=== PATIENT | male | born 1960 | race Caucasian/White ===

== ENCOUNTER 2018-10-02 00:59 | Emergency (ER) | payer MEDICARE, MEDICAID ==
[2018-10-02 01:11] VITALS: BMI 38.7
[2018-10-02 01:27] VITALS: TEMP 98.3; O2SAT 100
--- NOTE | 2018-10-02 01:31 | ED PDOC ---
Arrival/HPI - General Chief Complaint: Bite Time Seen by Provider: 10/02/18 01:02 Historian: Patient - History of Present Illness Narrative History of Present Illness (Text): 10/02/18 01:31 57 year old male, with no significant past medical history, presents to the emergency department s/p unknown dog attacked him. Patient states prior to arrival, patient parked his car and got out when an unknown dog came up to him. He state she was trying to pet the dog when the dog began trying to attack him. He tried to kick the dog, but the dog bit him through his pajama pants. Initially patient had no pain, but once he took off his pants, he noticed bruising and abrasions to the left ankle. Patient does not known dogs vaccination status. He denies any back pain, neck pain, or any other complaints/injuries. PMD: Dr. Cheung Time/Duration: Prior to Arrival Symptom Onset: Sudden Activities at Onset: Light Context: Street Past Medical History - Provider Review Nursing Documentation Reviewed: Yes - Tetanus Immunization Tetanus Immunization: Unknown - Cardiac Hx Hypertension: Yes Hx Peripheral Edema: Yes (both feet +2) - Pulmonary Hx Respiratory Disorders: No - Neurological Hx Neurological Disorder: No - HEENT Hx HEENT Disorder: No - Renal Hx Dialysis: Yes Date of Last Dialysis Treatment: 05/17/15 Hx Renal Failure: Yes (dialysis m/w/f at ) - Endocrine/Metabolic Hx Diabetes Mellitus Type 2: Yes - Hematological/Oncological Hx Blood Transfusions: Yes Hx Blood Transfusion Reaction: No - Integumentary Hx Dermatological Disorder: No - Musculoskeletal/Rheumatological Hx Musculoskeletal Disorders: No Hx Falls: No - Gastrointestinal Other/Comment: ulcer - Genitourinary/Gynecological Hx Genitourinary Disorders: No - Psychiatric Hx Psychophysiologic Disorder: No Hx Substance Use: No - Surgical History Other/Comment: left chest wall dialysis cath removed 05/15/15 - Anesthesia Hx Anesthesia Reactions: No Hx Malignant Hyperthermia: No - Suicidal Assessment Feels Threatened In Home Enviroment: No Family/Social History - Physician Review Nursing Documentation Reviewed: Yes Family/Social History: No Known Family HX Smoking Status: Never Smoked Hx Alcohol Use: No Hx Substance Use: No Hx Substance Use Treatment: No Allergies/Home Meds Allergies/Adverse Reactions: Allergies No Known Allergies Allergy (Verified 10/02/18 01:11) Home Medications: Home Meds Medication Instructions Recorded Confirmed RX: Calcium Acetate 1,334 mg PO TID 11/01/13 10/02/18 RX: Cinacalcet [Sensipar] 90 mg PO DAILY 11/01/13 10/02/18 RX: Sevelamer Carbonate [Renvela] 2,400 mg PO TID 11/01/13 10/02/18 RX: Famotidine 40 mg PO DAILY 05/17/15 10/02/18 RX: amLODIPine [Norvasc] 10 mg PO DAILY 05/17/15 10/02/18 Review of Systems - Physician Review All systems were reviewed & negative as marked: Yes - Review of Systems Musculoskeletal: absent: Back Pain, Neck Pain Skin: Other (bruising and abrasion to the left ankle) Physical Exam Vital Signs Reviewed: Yes Vital Signs Temp Pulse Resp BP Pulse Ox 10/02/18 01:26 98.3 F 100 H 16 158/97 H 100 Temperature: Afebrile Blood Pressure: Hypertensive Pulse: Tachycardic Respiratory Rate: Normal Appearance: Positive for: Well-Appearing, Non-Toxic, Comfortable Pain Distress: None Mental Status: Positive for: Alert and Oriented X 3 - Systems Exam Head: Present: Atraumatic, Normocephalic Pupils: Present: PERRL Extroacular Muscles: Present: EOMI Conjunctiva: Present: Normal Upper Extremity: Present: Normal Inspection. No: Cyanosis, Edema Lower Extremity: Present: Other (Swelling, ecchymosis, and abrasions to the left ankle). No: Edema Neurological: Present: GCS=15, CN II-XII Intact, Speech Normal Skin: Present: Warm, Dry, Normal Color. No: Rashes Psychiatric: Present: Alert, Oriented x 3, Normal Insight, Normal Concentration Medical Decision Making ED Course and Treatment: 10/02/18 01:31 Impression: 57 year old male presents s/p dog bite to the left ankle. PE shows swelling, ecchymosis, and abrasions to the left ankle. No laceration. Plan: -- Wound cleaned and dressed -- disposition Progress Notes: 10/02/18 01:43 Patient's wound cleaned, bacitracin applied, and wound dressed. Abrasions and ecchymosis noted but no lacerations present. Discussed with patient to followup with PMD or return to ER if noted any worsening symptoms or sign of infection. Patient in agreement with plan to be discharged home and is stable for discharge. - Scribe Statement The provider has reviewed the documentation as recorded by the Paula Herr Provider Violetaibe Attestation: All medical record entries made by the Scribe were at my direction and persona ramiro dictated by me. I have reviewed the chart and agree that the record accurately reflects my personal performance of the history, physical exam, medical decision making, and the department course for this patient. I have also personally directed, reviewed, and agree with the discharge instructions and disposition. Disposition/Present on Arrival - Present on Arrival Any Indicators Present on Arrival: No History of DVT/PE: No History of Uncontrolled Diabetes: Yes Urinary Catheter: No History of Decub. Ulcer: No History Surgical Site Infection Following: None - Disposition Have Diagnosis and Disposition been Completed?: Yes Diagnosis: Dog bite of ankle Disposition: HOME/ ROUTINE Disposition Time: 02:15 Condition: STABLE Discharge Instructions (ExitCare): Animal Bites (DC) Additional Instructions: DIALLO CABALLERO, thank you for letting us take care of you today. Your provider was Tatum Reid MD and you were treated for DOG BITE. The emergency medical care you received today was directed at your acute symptoms. If you were prescribed any medication, please fill it and take as directed. It may take several days for your symptoms to resolve. Return to the Emergency Department if your symptoms worsen, do not improve, or if you have any other problems. Please contact your doctor or call one of the physicians/clinics you have been referred to that are listed on the Patient Visit Information form that is included in your discharge packet. Bring any paperwork you were given at discharge with you along with any medications you are taking to your follow up visit. Our treatment cannot replace ongoing medical care by a primary care provider outside of the emergency department. Thank you for allowing the [facility] team to be part of your care today. If you had an X-Ray or CT scan: A Radiologist will review the ED reading if any change in treatment is needed we will contact you. If you had a blood, urine, or wound culture: It will take several days for the results, if any change in treatment is needed we will contact you. If you had an STI test: It will take 48 hours for the results. Please call after 1 week if you have not heard back. Forms: [employer] ([place])
[2018-10-02 02:58] VITALS: BP 149/78; PULSE 96; RESP 18
== END 2018-10-02 02:59 | disposition home or self-care (01) ==
LOC: ED 00:59
DX: S90.512A Abrasion, left ankle, initial encounter (principal); W54.0XXA Bitten by dog, initial encounter; Y92.89 Other specified places as the place of occurrence of the external cause